=== PATIENT | male | born 1975 | race Hispanic/Latino ===

== ENCOUNTER → 2022-03-20 | Outpatient (CLI) | payer BC, OTHER ==
[~2022-03-20] MED LIST: AMLO-258 PO; LISI1TAB51 PO; METO-391 PO
== END | disposition home or self-care (01) ==
LOC: RAH 12:20
PROVIDERS: ATTEND Internal Medicine Cardiovascular Disease
DX: I11.9 Hypertensive heart disease without heart failure (principal); E66.9 Obesity, unspecified; R01.1 Cardiac murmur, unspecified; L97.929 Non-pressure chronic ulcer of unspecified part of left lower leg with unspecified severity
CPT/HCPCS: 93306; 93970

== ENCOUNTER → 2022-03-26 | Outpatient (CLI) | payer BC, OTHER | END | disposition home or self-care (01) | LOC: SHCH 11:32 | PROVIDERS: ATTEND Internal Medicine Cardiovascular Disease | DX: I87.2 Venous insufficiency (chronic) (peripheral) (principal) | CPT/HCPCS: 93970 ==